=== PATIENT | female | born 1965 | race Caucasian/White ===

== ENCOUNTER → 2022-05-22 | Outpatient (CLI) | payer BC | LOC: US 05-07 09:30 → KOH-I 05-07 10:30 → US 05-10 08:30 → MRI 05-10 08:30 → EMI 10:03 → MRI 10:03 | DX: R74.8 Abnormal levels of other serum enzymes (principal); M51.34 Other intervertebral disc degeneration, thoracic region; M47.27 Other spondylosis with radiculopathy, lumbosacral region; K76.0 Fatty (change of) liver, not elsewhere classified | CPT/HCPCS: 72146; 72148; 76705 ==

== ENCOUNTER → 2022-06-14 | Outpatient (CLI) | payer BC | LOC: HEART CORB 05-24 11:00 | DX: R07.2 Precordial pain (principal) ==